=== PATIENT | female | born 1975 | race Caucasian/White ===

== ENCOUNTER 2017-04-07 16:20 | Emergency (ER) | payer OTHER ==
[~2017-04-07] VITALS: Ht 152.4 cm; Wt 84.1 kg
[2017-04-07 16:23] VITALS: BP 124/73; TEMP 98.2
[2017-04-07] MEDS ORDERED: ULTRAM 50MG TAB50 MG PO (17:22)
[2017-04-07 18:23] VITALS: PULSE 71
== END 2017-04-07 18:23 | disposition home or self-care (01) ==
LOC: COL.ER 16:20
DX: S93.401A Sprain of unspecified ligament of right ankle, initial encounter (principal); X50.1XXA Overexertion from prolonged static or awkward postures, initial encounter; Y92.410 Unspecified street and highway as the place of occurrence of the external cause